=== PATIENT | female | born 1975 | race Caucasian/White ===

== ENCOUNTER 2017-05-02 13:02 | Inpatient (IN) | payer MEDICAID ==
[2017-05-02 14:56] LABS: ADD MAN DIFF? NO
[2017-05-02 15:00] LABS: BASOPHIL # 0.1 10^3/ul (0.0-0.1); BASOPHILS % 0.4 % (0.0-2.0); EOSINOPHILS # 0.2 10^3/ul (0.0-0.5); EOSINOPHILS % 1.2 % (0.0-7.0); HEMATOCRIT 41.6 % (37.0-47.0); HEMOGLOBIN 13.9 g/dl (12.0-16.0); LYMPHOCYTES # 4.5 10^3/ul (0.8-2.9); LYMPHOCYTES % 33.6 % (15.0-51.0); MEAN CORPUSCULAR HEMOGLOBIN 27.7 pg (29.0-33.0); MEAN CORPUSCULAR HGB CONC 33.4 g/dl (32.0-37.0); MEAN PLATELET VOLUME 9.2 fl (7.4-10.4); MONOCYTE # 0.6 10^3/ul (0.3-0.9); MONOCYTES % 4.3 % (0.0-11.0); NEUTROPHIL # 8.1 10^3/ul (1.6-7.5); NEUTROPHILS % 60.2 % (39.0-77.0); PLATELET COUNT 376 10^3/UL (140-415); RED BLOOD COUNT 5.01 10^6/ul (4.20-5.40); RED CELL DISTRIBUTION WIDTH 12.3 % (11.5-14.5)
[2017-05-02 15:00] LABS: WHITE BLOOD COUNT 13.4 10^3/ul (4.8-10.8)
[2017-05-02 15:20] LABS: ADD UMIC NO; UR ASCORBIC ACID NEGATIVE (NEGATIVE); UR BACTERIA FEW /HPF (NONE SEEN); UR BILIRUBIN (Dip) NEGATIVE (NEGATIVE); UR BLOOD (Dip) NEGATIVE (NEGATIVE); UR CLARITY SLIGHTLY CLOUDY (CLEAR); UR COLOR YELLOW (YELLOW); UR GLUCOSE (Dip) 1+ mg/dL (NEGATIVE); UR KETONES (Dip) NEGATIVE (NEGATIVE); UR LEUKOCYTE ESTERASE (Dip) NEGATIVE Leu/ul (NEGATIVE); UR NITRITE (Dip) NEGATIVE (NEGATIVE); UR RBC 1 /HPF (0-5); UR SPECIFIC GRAVITY (Dip) 1.013 (1.003-1.030); UR SQUAMOUS EPITHELIAL CELL FEW /HPF (FEW); UR TOTAL PROTEIN (Dip) NEGATIVE (NEGATIVE); UR UROBILINOGEN (Dip) NEGATIVE (NEGATIVE); UR WBC 2 /HPF (0-5)
[2017-05-02 15:22] LABS: ALANINE AMINOTRANSFERASE 25 IU/L (13-69); ALBUMIN 4.3 g/dl (3.3-4.9); ALBUMIN/GLOBULIN RATIO 1.02; ALKALINE PHOSPHATASE 127 IU/L (42-121); ANION GAP 17 (8-16); ASPARTATE AMINO TRANSFERASE 20 IU/L (15-46); BILIRUBIN,INDIRECT 0.1 mg/dl (0-1.1); BILIRUBIN,TOTAL 0.1 mg/dl (0.2-1.3); BLOOD UREA NITROGEN 8 mg/dl (7-20); CALCIUM 9.1 mg/dl (8.4-10.2); CARBON DIOXIDE 29 mmol/L (21-31); CHLORIDE 101 mmol/L (97-110); CREATININE 0.52 mg/dl (0.44-1.00); GLUCOSE 161 mg/dl (70-220); LIPASE 59 U/L (23-300); POTASSIUM 4.1 mmol/L (3.5-5.1); SODIUM 143 mmol/L (135-144); TOTAL PROTEIN 8.5 g/dl (6.1-8.1)
[2017-05-02 15:35] LABS: TROPONIN-I < 0.012 ng/ml (0.00-0.12)
[2017-05-02] MEDS: SOD CHLORIDE 0.9% 100 ML (16:56)
[2017-05-02] MEDS: IODIXANOL LOCM 100 ML BTL (16:56)
[2017-05-02] MEDS ORDERED: ACETAMINOPHEN 325 MG TAB PO ×2 (19:00→20:30)
[2017-05-02] MEDS: SOD CHLORIDE 0.9% 1,000 ML IV (19:22)
[2017-05-02] MEDS: morphine 2 MG INJ IV ×2 (19:22→21:21)
[2017-05-02] MEDS: PIPER-TAZO 3.375 GM IV (PMX) 50 ML IVPB (19:36)
[2017-05-02] MEDS ORDERED: NACL 0.9% 3 ML SYG IV (20:30)
[2017-05-02] MEDS ORDERED: HYDROCODONE/APAP (5/325) TAB PO (20:30)
[2017-05-02] MEDS ORDERED: ONDANSETRON 4 MG INJ IV (20:30)
[2017-05-02] MEDS ORDERED: ALBUTEROL/IPRATROPIUM (NEB) 3 ML AMP HHN (20:30)
[2017-05-02] MEDS ORDERED: NITROGLYCERIN (SL) 0.4 MG TAB SL (20:30)
[2017-05-02] MEDS ORDERED: LORAZEPAM 2 MG INJ IV (20:30)
[2017-05-02] MEDS ORDERED: DOCUSATE SODIUM 100 MG CAP PO (20:30)
[2017-05-02 21:13] LABS: FREE T4 (FREE THYROXINE) 0.89 ng/dl (0.64-1.79)
[2017-05-02] MEDS: ONDANSETRON 4 MG INJ IV (21:21)
[2017-05-02] MEDS: HEPARIN 5,000 UNIT/0.5 ML VIAL SC (21:40)
[2017-05-02] MEDS: HYDROmorphONE 1 MG/ML SYG IV (22:53)
[2017-05-03] MEDS: HYDROmorphONE 1 MG/ML SYG IV ×2 (01:30→01:32)
[2017-05-03] MEDS ORDERED: PIPER-TAZO 3.375 GM IV (PMX) 50 ML IV (02:00)
[2017-05-03] MEDS: PIPER-TAZO 3.375 GM IV (PMX) 100 ML IVPB ×4 (03:00→18:31)
[2017-05-03] MEDS: morphine 4 MG/ML VIAL IV (06:54)
[2017-05-03] MEDS: morphine 2 MG INJ IV ×5 (06:54→21:05)
[2017-05-03] MEDS: PANTOPRAZOLE 40 MG INJ IV (07:09)
[2017-05-03 08:10] LABS: ADD MAN DIFF? NO
[2017-05-03 08:12] LABS: BASOPHIL # 0.1 10^3/ul (0.0-0.1); BASOPHILS % 0.4 % (0.0-2.0); EOSINOPHILS # 0.1 10^3/ul (0.0-0.5); EOSINOPHILS % 0.9 % (0.0-7.0); HEMATOCRIT 37.9 % (37.0-47.0); HEMOGLOBIN 12.6 g/dl (12.0-16.0); LYMPHOCYTES # 4.6 10^3/ul (0.8-2.9); MEAN CORPUSCULAR HEMOGLOBIN 27.8 pg (29.0-33.0); MEAN CORPUSCULAR HGB CONC 33.2 g/dl (32.0-37.0); MEAN CORPUSCULAR VOLUME 83.7 fl (82.0-101.0); MEAN PLATELET VOLUME 9.3 fl (7.4-10.4); MONOCYTE # 0.6 10^3/ul (0.3-0.9); MONOCYTES % 4.6 % (0.0-11.0); NEUTROPHIL # 7.4 10^3/ul (1.6-7.5); NEUTROPHILS % 57.9 % (39.0-77.0); PLATELET COUNT 332 10^3/UL (140-415); RED BLOOD COUNT 4.53 10^6/ul (4.20-5.40); RED CELL DISTRIBUTION WIDTH 12.6 % (11.5-14.5)
[2017-05-03 08:12] LABS: WHITE BLOOD COUNT 12.7 10^3/ul (4.8-10.8)
[2017-05-03 08:32] LABS: HEMOGLOBIN A1C 8.7 % (0-5.9)
[2017-05-03 08:33] LABS: CHOL/HDL RATIO 3.5 RATIO; HDL CHOLESTEROL 39 mg/dl (34-88); LDL CHOLESTEROL,CALCULATED 54 mg/dl; TRIGLYCERIDES 231 mg/dl (0-149)
[2017-05-03 08:33] LABS: CHOLESTEROL 139 mg/dl (100-200)
[2017-05-03 08:34] LABS: ANION GAP 14 (8-16); BLOOD UREA NITROGEN 9 mg/dl (7-20); CALCIUM 8.8 mg/dl (8.4-10.2); CARBON DIOXIDE 26 mmol/L (21-31); CHLORIDE 106 mmol/L (97-110); CREATININE 0.62 mg/dl (0.44-1.00); GLUCOSE 172 mg/dl (70-220); POTASSIUM 4.3 mmol/L (3.5-5.1); SODIUM 142 mmol/L (135-144)
[2017-05-03] MEDS: HEPARIN 5,000 UNIT/0.5 ML VIAL SC ×2 (08:56→21:01)
[2017-05-03] MEDS ORDERED: DEXTROSE 5%-0.45% NACL 1,000 ML IV (10:00)
[2017-05-03] MEDS: SOD CHLORIDE 0.45% 1,000 ML IV (10:59)
[2017-05-03] MEDS ORDERED: GLUCAGON 1 MG INJ IM (11:00)
[2017-05-03] MEDS ORDERED: GLUCOSE GEL 15 GRAM TUBE PO ×2 (11:00)
[2017-05-03] MEDS ORDERED: GLUCOSE GEL 15 GRAM TUBE BUCCAL (11:00)
[2017-05-03] MEDS ORDERED: DEXTROSE 50% 50 ML SYRINGE IV ×2 (11:00)
[2017-05-03] MEDS: INSULIN ASPART [NOVOLOG] 3 ML PEN SC ×3 (12:26→21:01)
[2017-05-03] MEDS: INSULIN GLARGINE [LANtus] 3 ML PEN SC (21:01)
[2017-05-04] MEDS: PIPER-TAZO 3.375 GM IV (PMX) 100 ML IVPB ×4 (00:04→23:40)
[2017-05-04] MEDS: SOD CHLORIDE 0.45% 1,000 ML IV ×2 (02:10→17:36)
[2017-05-04] MEDS: ACCU-CHEK XX (02:15)
[2017-05-04] MEDS: PANTOPRAZOLE 40 MG INJ IV ×2 (05:52→21:01)
[2017-05-04 06:14] LABS: ADD MAN DIFF? NO
[2017-05-04 06:24] LABS: BASOPHILS % 0.3 % (0.0-2.0); EOSINOPHILS # 0.2 10^3/ul (0.0-0.5); EOSINOPHILS % 1.1 % (0.0-7.0); HEMATOCRIT 38.1 % (37.0-47.0); HEMOGLOBIN 12.6 g/dl (12.0-16.0); LYMPHOCYTES % 37.4 % (15.0-51.0); MEAN CORPUSCULAR HEMOGLOBIN 27.8 pg (29.0-33.0); MEAN CORPUSCULAR HGB CONC 33.1 g/dl (32.0-37.0); MEAN CORPUSCULAR VOLUME 84.1 fl (82.0-101.0); MONOCYTE # 0.7 10^3/ul (0.3-0.9); MONOCYTES % 5.1 % (0.0-11.0); NEUTROPHIL # 7.4 10^3/ul (1.6-7.5); NEUTROPHILS % 55.8 % (39.0-77.0); PLATELET COUNT 312 10^3/UL (140-415); RED BLOOD COUNT 4.53 10^6/ul (4.20-5.40); RED CELL DISTRIBUTION WIDTH 12.6 % (11.5-14.5)
[2017-05-04 06:24] LABS: WHITE BLOOD COUNT 13.3 10^3/ul (4.8-10.8)
[2017-05-04] MEDS: MAGNESIUM HYDROXIDE 30ML CUP PO (06:52)
[2017-05-04] MEDS: morphine 2 MG INJ IV ×3 (06:52→21:15)
[2017-05-04 06:59] LABS: ANION GAP 14 (8-16); BLOOD UREA NITROGEN 14 mg/dl (7-20); CALCIUM 9.2 mg/dl (8.4-10.2); CARBON DIOXIDE 29 mmol/L (21-31); CHLORIDE 104 mmol/L (97-110); CREATININE 0.65 mg/dl (0.44-1.00); GLUCOSE 161 mg/dl (70-220); POTASSIUM 4.5 mmol/L (3.5-5.1); SODIUM 142 mmol/L (135-144)
[2017-05-04] MEDS: INSULIN ASPART [NOVOLOG] 3 ML PEN SC ×4 (07:48→21:05)
[2017-05-04] MEDS: HEPARIN 5,000 UNIT/0.5 ML VIAL SC ×2 (08:58→21:05)
[2017-05-04] MEDS: metroNIDAZOLE 500 MG TAB PO (14:44)
[2017-05-04] MEDS: NA PHOSPHATE/BIPHOS 133 ML ENEMA PR (14:48)
[2017-05-04] MEDS: CIPROFLOXACIN 500 MG TAB PO (17:35)
[2017-05-04] MEDS: SUCRALFATE (100 MG/ML) 10ML CUP PO ×2 (17:35→21:01)
[2017-05-04] MEDS: INSULIN GLARGINE [LANtus] 3 ML PEN SC (21:04)
[2017-05-04] MEDS ORDERED: metroNIDAZOLE 500 MG/NS (PMX) 100 ML IVPB (22:00)
[2017-05-05] MEDS: ACCU-CHEK XX (02:20)
[2017-05-05] MEDS: SOD CHLORIDE 0.45% 1,000 ML IV (05:54)
[2017-05-05] MEDS: PIPER-TAZO 3.375 GM IV (PMX) 100 ML IVPB (06:14)
[2017-05-05] MEDS: morphine 2 MG INJ IV (06:14)
[2017-05-05 06:26] LABS: ADD MAN DIFF? NO
[2017-05-05 06:47] LABS: BASOPHILS % 0.3 % (0.0-2.0); EOSINOPHILS # 0.2 10^3/ul (0.0-0.5); EOSINOPHILS % 1.2 % (0.0-7.0); HEMOGLOBIN 13.1 g/dl (12.0-16.0); LYMPHOCYTES # 4.4 10^3/ul (0.8-2.9); LYMPHOCYTES % 33.5 % (15.0-51.0); MEAN CORPUSCULAR HEMOGLOBIN 27.5 pg (29.0-33.0); MEAN CORPUSCULAR HGB CONC 32.8 g/dl (32.0-37.0); MEAN CORPUSCULAR VOLUME 83.9 fl (82.0-101.0); MEAN PLATELET VOLUME 9.5 fl (7.4-10.4); MONOCYTE # 0.8 10^3/ul (0.3-0.9); MONOCYTES % 6.3 % (0.0-11.0); NEUTROPHIL # 7.7 10^3/ul (1.6-7.5); NEUTROPHILS % 58.5 % (39.0-77.0); PLATELET COUNT 357 10^3/UL (140-415); RED BLOOD COUNT 4.77 10^6/ul (4.20-5.40); RED CELL DISTRIBUTION WIDTH 12.2 % (11.5-14.5)
[2017-05-05 06:47] LABS: WHITE BLOOD COUNT 13.1 10^3/ul (4.8-10.8)
[2017-05-05 07:01] LABS: ANION GAP 16 (8-16)
[2017-05-05 07:04] LABS: BLOOD UREA NITROGEN 8 mg/dl (7-20); CALCIUM 8.7 mg/dl (8.4-10.2); CARBON DIOXIDE 28 mmol/L (21-31); CHLORIDE 103 mmol/L (97-110); GLUCOSE 127 mg/dl (70-220); POTASSIUM 4.4 mmol/L (3.5-5.1); SODIUM 143 mmol/L (135-144)
[2017-05-05 07:14] LABS: PHOSPHORUS 4.4 mg/dl (2.5-4.9)
[2017-05-05 07:14] LABS: MAGNESIUM 1.8 mg/dl (1.7-2.5)
[2017-05-05] MEDS: INSULIN ASPART [NOVOLOG] 3 ML PEN SC ×4 (07:51→21:15)
[2017-05-05] MEDS ORDERED: CIPROFLOXACIN 400MG/D5W 200 ML IVPB (09:00)
[2017-05-05] MEDS: HEPARIN 5,000 UNIT/0.5 ML VIAL SC ×2 (09:00→21:13)
[2017-05-05] MEDS: SUCRALFATE (100 MG/ML) 10ML CUP PO ×4 (09:00→21:08)
[2017-05-05] MEDS: PANTOPRAZOLE 40 MG INJ IV (09:00)
[2017-05-05] MEDS ORDERED: BUPIVACAINE 0.5%/EPI (SDV) 30 ML INJ (09:11)
[2017-05-05] MEDS ORDERED: MIDAZOLAM 1 MG/ML 2 ML INJ (09:48)
[2017-05-05] MEDS: BUPIVACAINE 0.25%/EPI (SDV) 30 ML INJ INJ (10:39)
[2017-05-05] MEDS ORDERED: LIDOCAINE 100 MG SYRINGE (11:07)
[2017-05-05] MEDS ORDERED: PROPOFOL 20 ML (11:07)
[2017-05-05] MEDS ORDERED: ROCURONIUM 50 MG INJ (11:08)
[2017-05-05] MEDS ORDERED: NEOSTIGMINE 3 MG/3 ML SYRINGE (11:08)
[2017-05-05] MEDS ORDERED: ONDANSETRON 4 MG INJ (11:08)
[2017-05-05] MEDS ORDERED: GLYCOPYRROLATE 1 MG INJ (11:08)
[2017-05-05] MEDS ORDERED: DIPHENHYDRAMINE 50 MG INJ IV (11:30)
[2017-05-05] MEDS ORDERED: HYDROCODONE/APAP (5/325) TAB PO (11:30)
[2017-05-05] MEDS ORDERED: DOCUSATE SODIUM 100 MG CAP PO (11:30)
[2017-05-05] MEDS ORDERED: METOCLOPRAMIDE 10 MG INJ IV (11:30)
[2017-05-05] MEDS ORDERED: HYDROmorphONE (0.2 MG/ML) 10ML SYG IV ×2 (11:30)
[2017-05-05] MEDS ORDERED: NA PHOSPHATE/BIPHOS 133 ML ENEMA PR (11:30)
[2017-05-05] MEDS ORDERED: FENTAnyl 50 MCG/ML VIAL (11:33)
[2017-05-05] MEDS ORDERED: MEPERIDINE 25 MG INJ (11:33)
[2017-05-05] MEDS: ONDANSETRON 4 MG INJ IV (11:39)
[2017-05-05] MEDS: MEPERIDINE 25 MG INJ IV (11:39)
[2017-05-05] MEDS: FENTAnyl 50 MCG/ML VIAL IV ×2 (11:40→11:59)
[2017-05-05] MEDS ORDERED: ENOXAPARIN 40 MG/0.4 ML SYG SC (12:00)
[2017-05-05] MEDS ORDERED: HYDROmorphONE 0.5 MG/0.5 ML SYG IV (13:00)
[2017-05-05] MEDS: HYDROmorphONE 1 MG/ML SYG IV (13:15)
[2017-05-05] MEDS: CEPASTAT LOZENGE MT (16:13)
[2017-05-05] MEDS: HYDROmorphONE 0.5 MG/0.5 ML SYG IV ×3 (17:31→23:48)
[2017-05-05] MEDS: FAMOTIDINE 20 MG TAB PO (21:08)
[2017-05-05] MEDS: INSULIN GLARGINE [LANtus] 3 ML PEN SC (21:20)
[2017-05-05] MEDS: BISACODYL 10 MG SUPP PR (23:48)
[2017-05-06] MEDS: ACCU-CHEK XX (02:00)
[2017-05-06] MEDS: HYDROmorphONE 0.5 MG/0.5 ML SYG IV ×6 (04:07→21:36)
[2017-05-06] MEDS: HYDROCODONE/APAP (5/325) TAB PO (06:44)
[2017-05-06 06:46] LABS: ADD MAN DIFF? NO
[2017-05-06 06:50] LABS: BASOPHILS % 0.2 % (0.0-2.0); EOSINOPHILS # 0.1 10^3/ul (0.0-0.5); EOSINOPHILS % 0.6 % (0.0-7.0); HEMATOCRIT 36.9 % (37.0-47.0); HEMOGLOBIN 12.1 g/dl (12.0-16.0); LYMPHOCYTES # 3.5 10^3/ul (0.8-2.9); LYMPHOCYTES % 25.5 % (15.0-51.0); MEAN CORPUSCULAR HEMOGLOBIN 27.9 pg (29.0-33.0); MEAN CORPUSCULAR HGB CONC 32.8 g/dl (32.0-37.0); MEAN CORPUSCULAR VOLUME 85.2 fl (82.0-101.0); MEAN PLATELET VOLUME 9.6 fl (7.4-10.4); MONOCYTES % 7.1 % (0.0-11.0); NEUTROPHIL # 9.1 10^3/ul (1.6-7.5); NEUTROPHILS % 66.3 % (39.0-77.0); PLATELET COUNT 329 10^3/UL (140-415); RED BLOOD COUNT 4.33 10^6/ul (4.20-5.40); RED CELL DISTRIBUTION WIDTH 12.7 % (11.5-14.5)
[2017-05-06 06:50] LABS: WHITE BLOOD COUNT 13.7 10^3/ul (4.8-10.8)
[2017-05-06 07:27] LABS: ANION GAP 13 (8-16); BLOOD UREA NITROGEN 7 mg/dl (7-20); CALCIUM 9.2 mg/dl (8.4-10.2); CARBON DIOXIDE 30 mmol/L (21-31); CHLORIDE 102 mmol/L (97-110); CREATININE 0.63 mg/dl (0.44-1.00); GLUCOSE 161 mg/dl (70-220); POTASSIUM 4.7 mmol/L (3.5-5.1); SODIUM 140 mmol/L (135-144)
[2017-05-06] MEDS: INSULIN ASPART [NOVOLOG] 3 ML PEN SC ×4 (08:10→21:00)
[2017-05-06] MEDS: SUCRALFATE (100 MG/ML) 10ML CUP PO ×4 (08:24→21:35)
[2017-05-06] MEDS: HEPARIN 5,000 UNIT/0.5 ML VIAL SC ×2 (08:28→21:46)
[2017-05-06] MEDS: MAGNESIUM HYDROXIDE 30ML CUP PO (10:32)
[2017-05-06] MEDS: BISACODYL 10 MG SUPP PR ×2 (12:28→23:50)
[2017-05-06] MEDS: FAMOTIDINE 20 MG TAB PO (21:35)
[2017-05-06] MEDS: INSULIN GLARGINE [LANtus] 3 ML PEN SC (21:45)
[2017-05-07] MEDS: ACCU-CHEK XX (02:00)
[2017-05-07] MEDS: HYDROmorphONE 0.5 MG/0.5 ML SYG IV ×2 (02:50→10:48)
[2017-05-07 06:22] LABS: ADD MAN DIFF? NO
[2017-05-07 06:40] LABS: WHITE BLOOD COUNT 11.7 10^3/ul (4.8-10.8)
[2017-05-07 06:40] LABS: BASOPHILS % 0.3 % (0.0-2.0); EOSINOPHILS # 0.2 10^3/ul (0.0-0.5); EOSINOPHILS % 1.7 % (0.0-7.0); HEMATOCRIT 37.7 % (37.0-47.0); HEMOGLOBIN 12.4 g/dl (12.0-16.0); LYMPHOCYTES # 4.4 10^3/ul (0.8-2.9); LYMPHOCYTES % 37.4 % (15.0-51.0); MEAN CORPUSCULAR HEMOGLOBIN 27.9 pg (29.0-33.0); MEAN CORPUSCULAR HGB CONC 32.9 g/dl (32.0-37.0); MEAN CORPUSCULAR VOLUME 84.9 fl (82.0-101.0); MEAN PLATELET VOLUME 10.3 fl (7.4-10.4); MONOCYTE # 0.7 10^3/ul (0.3-0.9); MONOCYTES % 6.3 % (0.0-11.0); NEUTROPHIL # 6.3 10^3/ul (1.6-7.5); PLATELET COUNT 311 10^3/UL (140-415); RED BLOOD COUNT 4.44 10^6/ul (4.20-5.40); RED CELL DISTRIBUTION WIDTH 12.4 % (11.5-14.5)
[2017-05-07 07:02] LABS: PHOSPHORUS 3.5 mg/dl (2.5-4.9)
[2017-05-07 07:12] LABS: ANION GAP 13 (8-16); BLOOD UREA NITROGEN 6 mg/dl (7-20); CALCIUM 8.6 mg/dl (8.4-10.2); CARBON DIOXIDE 29 mmol/L (21-31); CHLORIDE 104 mmol/L (97-110); GLUCOSE 137 mg/dl (70-220); POTASSIUM 4.2 mmol/L (3.5-5.1); SODIUM 142 mmol/L (135-144)
[2017-05-07] MEDS: INSULIN ASPART [NOVOLOG] 3 ML PEN SC ×2 (08:15→12:12)
[2017-05-07] MEDS: SUCRALFATE (100 MG/ML) 10ML CUP PO ×2 (08:27→12:06)
[2017-05-07] MEDS: HYDROCODONE/APAP (5/325) TAB PO (08:28)
[2017-05-07] MEDS: HEPARIN 5,000 UNIT/0.5 ML VIAL SC (08:36)
== END 2017-05-07 14:40 | disposition home or self-care (01) | DRG 343 ==
LOC: MS2 18:49 → FTE 13:02
PROC: 0DTJ4ZZ Resection of Appendix, Percutaneous Endoscopic Approach (ICD-10-PCS; principal; 2017-05-05 09:44)
DX: K35.80 Unspecified acute appendicitis (principal); E11.9 Type 2 diabetes mellitus without complications; K21.9 Gastro-esophageal reflux disease without esophagitis; R12 Heartburn; Z79.4 Long term (current) use of insulin; Z98.51 Tubal ligation status
CPT/HCPCS: 36415; 74176; 74177; 80048; 80053; 80061; 81001; 81003; 82962; 83036; 83690; 83735; 84100; 84439; 84443; 84484; 85025; 87040; 88304; 93005; 96365; 96372; 96375; 96376; 99285-25

== ENCOUNTER 2017-10-26 13:23 | Emergency (ER) | payer MEDICAID ==
[2017-10-26] MEDS: DEXAMETHASONE 10 MG/ML 1 ML INJ PO (17:23)
[2017-10-26] MEDS: IBUPROFEN LIQUID (PED) 20 MG/ML CUP PO (17:23)
== END 2017-10-26 18:08 | disposition home or self-care (01) ==
LOC: FTE 13:23
DX: R07.0 Pain in throat (principal); G89.18 Other acute postprocedural pain; I10 Essential (primary) hypertension; E11.9 Type 2 diabetes mellitus without complications; Z79.4 Long term (current) use of insulin
CPT/HCPCS: 99284; J1100

== ENCOUNTER 2018-02-03 11:19 | Emergency (ER) | payer SELFPAY, MEDICAID | END 2018-02-03 13:45 | disposition left against medical advice (07) | LOC: FTE 13:45 | DX: Z53.21 Procedure and treatment not carried out due to patient leaving prior to being seen by health care provider (principal) ==

== ENCOUNTER 2018-02-04 08:46 | Emergency (ER) | payer MEDICAID, OTHER ==
[2018-02-04] MEDS: ONDANSETRON 4 MG INJ IV (09:39)
[2018-02-04] MEDS: morphine 4 MG/ML VIAL IV (09:39)
[2018-02-04 09:46] LABS: ADD MAN DIFF? NO
[2018-02-04 09:49] LABS: BASOPHIL # 0.1 10^3/ul (0.0-0.1); BASOPHILS % 0.5 % (0.0-2.0); EOSINOPHILS # 0.2 10^3/ul (0.0-0.5); HEMATOCRIT 42.7 % (37.0-47.0); HEMOGLOBIN 14.4 g/dl (12.0-16.0); LYMPHOCYTES # 4.7 10^3/ul (0.8-2.9); LYMPHOCYTES % 41.7 % (15.0-51.0); MEAN CORPUSCULAR HEMOGLOBIN 27.9 pg (29.0-33.0); MEAN CORPUSCULAR HGB CONC 33.7 g/dl (32.0-37.0); MEAN CORPUSCULAR VOLUME 82.8 fl (82.0-101.0); MONOCYTE # 0.6 10^3/ul (0.3-0.9); MONOCYTES % 5.1 % (0.0-11.0); NEUTROPHIL # 5.7 10^3/ul (1.6-7.5); NEUTROPHILS % 50.5 % (39.0-77.0); PLATELET COUNT 317 10^3/UL (140-415); RED BLOOD COUNT 5.16 10^6/ul (4.20-5.40); RED CELL DISTRIBUTION WIDTH 13.6 % (11.5-14.5)
[2018-02-04 09:49] LABS: WHITE BLOOD COUNT 11.3 10^3/ul (4.8-10.8)
[2018-02-04 09:55] LABS: ADD UMIC NO; UR ASCORBIC ACID NEGATIVE (NEGATIVE); UR BILIRUBIN (Dip) NEGATIVE (NEGATIVE); UR BLOOD (Dip) NEGATIVE (NEGATIVE); UR CLARITY SLIGHTLY CLOUDY (CLEAR); UR COLOR YELLOW (YELLOW); UR GLUCOSE (Dip) 1+ mg/dL (NEGATIVE); UR KETONES (Dip) NEGATIVE (NEGATIVE); UR LEUKOCYTE ESTERASE (Dip) NEGATIVE Leu/ul (NEGATIVE); UR NITRITE (Dip) NEGATIVE (NEGATIVE); UR RBC 0 /HPF (0-5); UR SPECIFIC GRAVITY (Dip) 1.018 (1.003-1.030); UR SQUAMOUS EPITHELIAL CELL MODERATE /HPF (FEW); UR TOTAL PROTEIN (Dip) NEGATIVE (NEGATIVE); UR UROBILINOGEN (Dip) NEGATIVE (NEGATIVE); UR WBC 1 /HPF (0-5)
[2018-02-04 10:11] LABS: ALANINE AMINOTRANSFERASE 22 IU/L (13-69); ALBUMIN 3.7 g/dl (3.3-4.9); ALKALINE PHOSPHATASE 103 IU/L (42-121); ANION GAP 13 (5-13); ASPARTATE AMINO TRANSFERASE 26 IU/L (15-46); BILIRUBIN,INDIRECT 0.3 mg/dl (0-1.1); BILIRUBIN,TOTAL 0.3 mg/dl (0.2-1.3); BLOOD UREA NITROGEN 11 mg/dl (7-20); CALCIUM 9.3 mg/dl (8.4-10.2); CARBON DIOXIDE 23 mmol/L (21-31); CHLORIDE 105 mmol/L (97-110); CREATININE 0.39 mg/dl (0.44-1.00); GLUCOSE 172 mg/dl (70-220); LIPASE 56 U/L (23-300); POTASSIUM 4.2 mmol/L (3.5-5.1); SODIUM 141 mmol/L (135-144); TOTAL PROTEIN 7.8 g/dl (6.1-8.1)
== END 2018-02-04 10:44 | disposition home or self-care (01) ==
LOC: FTE 08:46
DX: K59.00 Constipation, unspecified (principal); E11.9 Type 2 diabetes mellitus without complications; Z79.4 Long term (current) use of insulin
CPT/HCPCS: 36415; 74176; 80053; 81001; 81003; 81025; 83690; 85025; 96374; 96375; 99285-25